=== PATIENT | female | born 1945 | race Caucasian/White ===

== ENCOUNTER 2024-02-07 07:46 | Inpatient (IN) | payer MEDICARE, BC, SELFPAY ==
[2024-02-04 19:56] VITALS: BP 126/84
[2024-02-04 21:17] VITALS: BP 147/56
[2024-02-04 21:21] VITALS: BMI 19.6
--- NOTE | 2024-02-04 21:25 | ED.GENMED ---
History of Present Illness
General
Chief Complaint: Abdominal Symptoms
Source: patient and family (Daughter)
Exam Limitations: none
Time Seen by Provider: 02/04/24 20:59
History of Present Illness
History of Present Illness:
78-year-old female noted to have a yellowing of her skin in the last 2 to 3 days. Also some fatigue and weakness. No significant abdominal pain. No nausea or vomiting. Some anorexia. No chest pain or shortness of breath. Does not use Tylenol.
No alcohol issues.
Past History
Past History
ED Past Medical History: GERD, HTN and Hypercholesterolemia
ED Past Surgical History:
Review of Systems
Review of Systems
All Other Systems: Not applicable
Constitutional: Reports fatigue; Denies fever, weight loss or chills
Respiratory: Reports no symptoms
Cardiac: Reports no symptoms
Phy Exam
Physical Exam
Physical Exam:
GENERAL: Alert and oriented in no apparent distress
EYE: Orbits normal. Scleral icterus
NECK: Supple, no significant adenopathy.
ENT: Pharynx without erythema
CARDIAC: Regular rate and rhythm without any obvious murmurs.
LUNGS: Clear breath sounds,normal
ABDOMEN: Soft, without focal tenderness or distention. Liver not palpable
NEUROLOGICAL: Alert and oriented , grossly non-focal
SKIN: Warm and dry, mildly jaundice. No petechia or purpura
MUSCULOSKELETAL: No edema,no deformity.Good color
PSYCH: Normal and appropriate interaction.
Course
Orders/Labs/Results
Orders:
Orders
02/04/24 21:09
IV Insert/Care/Rem.- Treatment PRN
US Abdomen Complete/Upper Urgent
Comment:
Reason For Exam: Elevated LFTs
02/04/24 21:30
Complete Blood Count/With Diff Urgent
Comprehensive Metabolic Panel Urgent
Lipase Urgent
02/04/24 21:31
PTT Urgent
Prothrombin Time Urgent
02/04/24 22:30
Urine Culture Reflexed from UA [Urinalysis Reflex To Culture] Urgent
Date Specimen was Collected: 02/04/24
Time Specimen was Collected: 22:28
Urine Microscopic Reflex Cult Urgent
Abnormal Lab Results
02/04/24 02/04/24
21:30 22:30
RBC 3.39 L 10^6/uL
(4.20-5.40)
Hgb 10.9 L g/dL
(12.0-16.0)
Hct 31.4 L %
(37.0-47.0)
MCH 32.2 H pg
(27.0-31.0)
MPV 11.6 H fL
(7.4-10.4)
Absolute Lymphs (auto) 0.9 L 10^3/uL
(1.2-3.4)
Lymphocytes % 17.9 L %
(20.5-51.1)
Monocytes % 10.9 H %
(1.7-9.3)
Glucose 138 H mg/dl
(70-99)
Total Bilirubin 11.2 H mg/dl
(0.2-1.3)
AST 407 H U/L
(14-36)
ALT 721 H* U/L
(0-35)
Alkaline Phosphatase 309 H U/L
(38-126)
Urine Bilirubin 3+ A
(Negative)
Urine Urobilinogen 2+ A
(Neg - 1+)
Leukocyte Esterase Rfl Trace A
(Negative)
02/04/24 21:30
02/04/24 21:30
Vital Signs
Initial and Last Documented VS:
Initial Vital Signs
Temp Pulse Resp BP Pulse Ox
97.8 F 83 20 126/84 100
02/04/24 19:56 02/04/24 19:56 02/04/24 19:56 02/04/24 19:56 02/04/24 19:56
Last Documented Vital Signs
Temp Pulse Resp BP Pulse Ox
98.5 F 71 20 140/51 96
02/04/24 21:17 02/04/24 22:26 02/04/24 22:26 02/04/24 22:26 02/04/24 22:26
MDM/Problems Addressed
Differential Diagnosis Includes:
Patient clinically nontoxic and in no distress. Painless jaundice. Workup in progress. Will contact GI for further approach
*Radiology
Radiology exam reviewed: radiology read reviewed (Dilated ducts with sludge)
*Pulse Oximetry
Patient hypoxic: no
*Critical Care Note
Total Time (30-74mins, 75-104mins- exclusive of procedures): Not Applicable
Update Note
Update Note:
Reviewed approach with GI. They recommend admission and more definitive workup. Needs MRCP.
ED Attending Note
-
Portions of this chart may have been created with voice recognition software.� Occasional wrong word or��sound alike� substitutions may have occurred due to the inherent limitations of voice recognition software.
Discharge Plan
Departure
Patient Disposition: Admit
Date of Disposition: 02/04/24
Time of Disposition: 22:43
Presentation/result/management discussed w/ accepting MD/DO: do
Discharge Problem:
Painless jaundice
Prescriptions:
No Action
simvastatin 20 mg Tablet
20 mg PO DAILY
fluticasone propionate
50 mcg inhalation DAILY PRN (Reason: congestion)
lisinopril
20 mg PO DAILY
omeprazole
20 mg PO DAILY
Referrals:
Kam Mercado DO [Family Provider] -
Interventions
Interventions:
*Risk Screen - Suicide Last Done: 02/04/24 19:56
*General Assessment Last Done: 02/04/24 19:56
*Neglect/Abuse Screening Last Done: 02/04/24 19:56
ED- Fall Risk Assessment Last Done: 02/04/24 21:19
*ED COVID-19 Vaccine History Last Done: 02/04/24 22:26
HA-Isavge-[facility] Assessment Last Done: 02/04/24 21:19
Discharge Date and Time
Print Language: OMANI
[2024-02-04 21:50] LABS: APTT 24.9 Sec (23.4-35.0); INR 1.14; PT 14.4 Sec (11.4-14.6)
[2024-02-04 21:50] LABS: % Basophils 0.6 % (0-2); % Immature Granulocytes 0.2 % (0-0.5); % Lymphocytes 17.9 % (20.5-51.1); % Monocytes 10.9 % (1.7-9.3); % Neutrophils 67.4 % (42.2-75.2); Absolute Eosinophils 0.2 10^3/uL (0-0.7); Absolute Lymphocytes 0.9 10^3/uL (1.2-3.4); Absolute Monocytes 0.6 10^3/uL (0.1-0.6); Absolute Neutrophils 3.5 10^3/uL (1.4-6.5); Hematocrit 31.4 % (37.0-47.0); Hemoglobin 10.9 g/dL (12.0-16.0); Mean Corp Hgb Conc. 34.7 g/dL (33.0-37.0); Mean Corpuscular Hgb 32.2 pg (27.0-31.0); Mean Corpuscular Volume 92.6 fL (81.0-99.0); Mean Platelet Volume 11.6 fL (7.4-10.4); Nucleated Red Blood Cells % 0 %; Platelet Count 190 10^3/uL (130-400); Red Blood Cell Count 3.39 10^6/uL (4.20-5.40); Red Cell Dist. Width 14.1 % (11.5-14.5); White Blood Cell Count 5.3 10^3/uL (4.8-10.8)
[2024-02-04 22:16] LABS: ALT (SGPT) 721 U/L (0-35); AST (SGOT) 407 U/L (14-36); Albumin 4.2 g/dl (3.5-5.0); Alkaline Phosphatase 309 U/L (38-126); Blood Urea Nitrogen 17 mg/dl (7-17); Calcium 9.9 mg/dl (8.4-10.2); Carbon Dioxide 22 mmol/L (22-30); Chloride 102 mmol/L (98-107); Estimated Creatinine Clearance 53 ml/min; Glucose 138 mg/dl (70-99); Sodium 138 mmol/L (135-145); Total Bilirubin 11.2 mg/dl (0.2-1.3); Total Protein 6.9 g/dl (6.3-8.2); eGFR > 60.00
[2024-02-04 22:26] VITALS: BP 140/51
[2024-02-04 22:36] LABS: Urine Albumin Trace (Neg - Trace); Urine Bilirubin 3+ (Negative); Urine Character Clear (Clear); Urine Color Yellow; Urine Glucose Negative (Negative); Urine Ketone Negative (Negative); Urine Leukocyte Trace (Negative); Urine Nitrite Negative (Negative); Urine Occult Blood Negative (Negative); Urine Urobilinogen 2+ (Neg - 1+)
[2024-02-04 22:50] LABS: Urine Bacteria Few (Negative); Urine Red Blood Cell 0-2 /HPF (0-2); Urine White Cell 0-2 /HPF (0-5)
--- NOTE | 2024-02-04 22:50 | HPS.HSE ---
Family Physician
-
Family Physician: Kam Mercado DO
Chief Complaint
-
Jaundiced
History of Present Illness
This is a 78-year-old female with past medical history of GERD, hyperlipidemia and hypertension who presents to the emergency department with development of bilious jaundice over the last 5 days.
Patient reported that 1 week ago she started noticing the discoloration of her urine becoming much more yellowish to brownish tinged and not clearing with drinking fluids. She denies any urinary symptom. She was seen by PMD who took a urine and
started on. Antibiotic. The urine test did not show that he did not have an infection. Ultimately she was sent to get a blood test which showed elevated bilirubin to 9 and then was sent to the ED for an ultrasound.
Patient herself reports her GERD symptoms but denies any other symptoms. She denies acetaminophen use. She denies history of alcohol use. She denies any other new medications. Patient reports that she has been itching for the last 3 days. No
prior history of malignancies.
Intermittent department the patient was afebrile hemodynamically stable and in no acute distress. CBC was unremarkable with a hemoglobin of 10.9. Chemistries with showing normal electrolytes normal BUN and creatinine with total bilirubin of 11.2,
elevated AST and ALT of 470 respectively. Lipase pending. UA shows bilirubin but is otherwise unremarkable. Abdominal ultrasound shows distended gallbladder with gallbladder sludge but no Gunn sign. There is ductal dilatation but no stones.
Associated pancreatic duct dilatation as well. No masses noted.
Medical History
Past Medical History
Past Medical History: Reports GERD, HTN and Hypercholesterolemia
Past Surgical History: Reports None
Social History
Unable to obtain full social history at this time due to: Dementia
Tobacco: Non-smoker
Alcohol: Occasional
Drug: None
Personal: Single
Living: With Family
Employment: Not Employed
Family History
Family History: Not pertinent
Allergies / Home Medications
Allergies reflects when Allergies were last updated in [employer].
Home Medications with original date entered in [employer]
Allergy/Medication List:
Allergies
Allergy/AdvReac Type Severity Reaction Status Date / Time
No Known Allergies Allergy Verified 02/04/24 20:00
Home Medications
fluticasone propionate 50 mcg inhalation DAILY PRN congestion 02/04/24
lisinopril 20 mg PO DAILY 02/04/24
omeprazole 20 mg PO DAILY 02/04/24
simvastatin 20 mg tablet 20 mg PO DAILY 02/04/24
Review of Systems
-
History Source: Patient
Constitutional: Reports No Symptoms
EENT: Reports No Symptoms
Respiratory: Reports No Symptoms
Cardiac: Reports No Symptoms
Abdomen/GI: Reports No Symptoms
: Reports Dark Urine
Musculoskeletal: Reports No Symptoms
Skin: Reports Itching and Other (Jaundiced)
Neurological: Reports No Symptoms
Endocrine: Reports No Symptoms
Hematologic/Lymphatic: Reports No Symptoms
Psych: Reports No Symptoms
Physical Exam
Vital Signs
Vital Signs
Temp Pulse Resp BP Pulse Ox
98.5 F 71 20 140/51 96
02/04/24 21:17 02/04/24 22:26 02/04/24 22:26 02/04/24 22:26 02/04/24 22:26
Physical Exam
General: Well Developed, Well Nourished, No Apparent Distress and Comfortable
HEENT: NormoCephalic, Moist mucous membranes, Atraumatic, PERRLA and Other (Scleral icterus)
Respiratory: Clear
Cardiac: S1/S2 and Regular Rhythm
Breast: Deferred by me
GI: Soft, Non Tender, Non Distended and Normal Bowel Sounds
Rectal: Deferred by Provider
Genito-urinary: Deferred by me
Musculoskeletal: No Clubbing, No Cyanosis and No Edema
Skin: Warm
Neuro: AO x 3
Hematologic/Lymphatic: No Lymphadenopathy
Psych: Calm
Laboratory Results
-
02/04/24 21:30
02/04/24 21:30
Laboratory Results
PT 14.4 Sec (11.4-14.6) 02/04/24:31
INR 1.14 02/04/24:
APTT 24.9 Sec (23.4-35.0) 02/04/24:
Total Bilirubin 11.2 mg/dl (0.2-1.3) H 02/04/24 21:30
AST 407 U/L (14-36) H 02/04/24 21:30
ALT 721 U/L (0-35) H* 02/04/24:30
Alkaline Phosphatase 309 U/L (38-126) H 02/04/24 21:30
Data Reviewed
-
Ultrasound: Report Reviewed by me
Lab Data: Labs Reviewed by me
Old Records: Reviewed
Impression/Plan
-
IMPRESSION:
This 78-year-old with no significant medical history except for GERD and hypertension presents with painless jaundice over the last few days without any acute abdominal symptoms including abdominal pain nausea or vomiting. Ultrasound shows biliary
ductal dilatation including pancreatic duct dilation. LFTs shows total bilirubin of 11.2 moderately elevated AST and ALT. She has a normal hemoglobin.
PLAN:
1. Jaundice -painless jaundice without hepatic dysfunction INR is within normal limits. Likely secondary to obstruction with the etiology of the obstruction is not clear at this time. Admitted to us to expedite further investigation.
- admit to med/surg obs
- mrcp recommended and ordered
- obtain gtp, direct bilirubin
- topical prn itch
- gi consult
2. HTN
- continue lisinopril
3. GERD
- continue ppi
DVT PPX - lovenox sq
Code Status - Full Code
[2024-02-04 23:03] LABS: Lipase > 4000 U/L (23-300)
[2024-02-05 00:21] VITALS: BP 137/68; BMI 19.3
--- NOTE | 2024-02-05 00:49 | TRANSFER ---
Pt admitted to unit from ED. Pt ambulated self to bed. Pt denies pain at this time. Pt reports when pt had pain it was on the RUQ 'under my bra strap and it felt like someone pressing on my ribs.' [id number]. Pt oriented to room with call avelar in reach.
Plan of care ongoing.
--- NOTE | 2024-02-05 03:58 | DOWNTIME ---
There was a [employer] Downtime on 02/05/2024 from 0100 to 02/05/2024 at 0355. Downtime documentation of patient's care, including medication administrations, has been reconciled in the electronic record per guidelines. Refer to the
patient's paper chart under the miscellaneous tab to see printed paper medication records and downtime forms.
--- NOTE | 2024-02-05 06:43 | CON.GI ---
Addendum entered and electronically signed by Peyton Sotelo Do, MD 02/05/24 12:53:
I saw and examined the patient.
The CONTACT CENTER ASSOCIATE's note was reviewed and I agree with the note.
Comment: Stephanie is a 78yo W with h/o HL and GERD who was told to come to ER by PCP for elevated LFTs. She was seen for discolored urine and treated with abx for UTI. Labs showed elevated LFTs and she was advised to go to ER for expediated
workup. She does report abd bloating discomfort but not pain and early satiety. 5lb wt loss. She denies constipation. Vitals stable exam icteric NTTP, NABS. Labs reviewed notable for very high LFTs and pancreatic enzyme
Impression
- Painless jaundice
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
- Elevated LFTs and lipase
- Wt loss
- Hyperlipidemia
- GERD
- HTN
Recommendations
- Await MRI MRCP
- Pending above may need ERCP for biliary stent and EUS for FNA
- NPO at [facility]
- C/w PPI
- Trend LFTs add INR
Will follow with you
Original Note:
Consultation
-
Date/Time Consultation Requested: 02/05/24 0015
Date/Time Consultation Performed: 02/05/24 1034
Requesting Provider: jared Altamirano MD
Performing Provider: LIGIA Acosta, Peyton uV MD
Reason for Consultation: painless Jaundice
Medical History
Chief Complaint / HPI
Chief Complaint: jaundice
History of Present Illness:
Pt is a 78yo with hx GERD, HTN, hypercholesterolemia with onset of fatigue, weakness and new painless jaundice. On admission US noted with distended GB with mild GB sludge with intra and extra hepatic biliary dilatation with associated pancreatic
ductal dilatation as well. No mass or stone noted. Labs notable for hbg 10.9 with bili 11.2, AST 407, ALT 731, and alk phos 309 with lipase >4000. In review with patient noted with onset of dark urine. She as initially treated for UTI with
Bactrim with some abdominal discomfort then Macrobid. She also noted decreased appetite with 4-5 lbs wt loss and morrissey looser stools.
She admits to chronic GERD with PRN Omeprazole but otherwise denies dysphagia, vomiting, constipation or rectal bleeding. No hx EGD or colonoscopy in past.
Past Medical History
Past Medical History: GERD, HTN and Hypercholesterolemia
Past Surgical History:
Social History
Tobacco: Non-Smoker
Alcohol: None
Drug: None
Living: Alone
Employment: Retired
Family History
Family History: Other (father with hx chay, no family hx colon Ca or pancreatic issues )
Allergies / Home Medications
Allergy/AdvReac Type Severity Reaction Status Date / Time
No Known Allergies Allergy Verified 02/04/24 20:00
�Medication �Instructions �Recorded
fluticasone propionate 50 mcg inhalation DAILY PRN 02/04/24
congestion
lisinopril 20 mg PO DAILY 02/04/24
omeprazole 20 mg PO PRN acid reflux 02/04/24
simvastatin 20 mg tablet 20 mg PO HS 02/04/24
Daily Multivitamin 02/05/24
Review of Systems
-
History Source: Patient
Constitutional: Reports Weight Loss and Fatigue
EENT: Reports No Symptoms
Respiratory: Reports No Symptoms
Cardiac: Reports No Symptoms
Abdomen/GI: Reports Abdominal Pain (mild after abx use) and Other (morrissey loose stools )
: Reports Dark Urine
Skin: Reports Other (jaundice )
Neurological: Reports No Symptoms
Endocrine: Reports No Symptoms
Hematologic/Lymphatic: Reports No Symptoms
Vital Signs
Temp Pulse Resp BP Pulse Ox
98.0 F 82 18 137/68 100
02/05/24 00:21 02/05/24 00:21 02/05/24 00:21 02/05/24 00:21 02/05/24 00:46
Physical Exam
Exam
General: Well Developed, Well Nourished and No Apparent Distress
HEENT: Normocephalic and Other (sclera icteric with jaundiced skin)
Respiratory: Clear
Cardiac: Regular Rhythm
GI: Soft, Non Tender and Non Distended
Musculoskeletal: No Clubbing and No Cyanosis
Skin: Warm and Dry
Neuro: Awake, Alert and AO x 3
Psych: Calm
Results
WBC 5.3 10^3/uL (4.8-10.8) 02/04/24 21:30
Hgb 10.9 g/dL (12.0-16.0) L 02/04/24 21:30
Hct 31.4 % (37.0-47.0) L 02/04/24 21:30
MCV 92.6 fL (81.0-99.0) 02/04/24 21:30
Plt Count 190 10^3/uL (130-400) 02/04/24 21:30
Absolute Neuts (auto) 3.5 10^3/uL (1.4-6.5) 02/04/24 21:30
PT 14.4 Sec (11.4-14.6) 02/04/24 21:31
INR 1.14 02/04/24 21:31
APTT 24.9 Sec (23.4-35.0) 02/04/24 21:31
Sodium 138 mmol/L (135-145) 02/04/24 21:30
Potassium 4.0 mmol/L (3.5-5.1) 02/04/24 21:30
Chloride 102 mmol/L (98-107) 02/04/24 21:30
Carbon Dioxide 22 mmol/L (22-30) 02/04/24 21:30
BUN 17 mg/dl (7-17) 02/04/24 21:30
Creatinine 0.7 mg/dL (0.6-1.0) 02/04/24 21:30
Calcium 9.9 mg/dl (8.4-10.2) 02/04/24 21:30
Total Bilirubin 11.2 mg/dl (0.2-1.3) H 02/04/24 21:30
AST 407 U/L (14-36) H 02/04/24 21:30
ALT 721 U/L (0-35) H* 02/04/24 21:30
Alkaline Phosphatase 309 U/L (38-126) H 02/04/24 21:30
Lipase > 4000 U/L (23-300) H* 02/04/24 21:30
Diagnostic Image Results:
02/04/24 US Abdomen Complete/Upper
IMPRESSION: Distended gallbladder with mild gallbladder sludge and intra and extra hepatic biliary dilatation. Associated pancreatic duct dilatation as well. No obstructing mass or stone noted. MRCP examination recommended.
Nonvisualization of the proximal IVC and abdominal aorta.
Prior GI Procedures:
EGD: none
Colonoscopy: none
Assessment / Plan
-
Pt is a 78yo with hx GERD, HTN, hypercholesterolemia with onset of fatigue, weakness and new painless jaundice. On admission US noted with distended GB with mild GB sludge with intra and extra hepatic biliary dilatation with associated pancreatic
ductal dilatation as well. No mass or stone noted. Labs notable for hbg 10.9 with bili 11.2, AST 407, ALT 731, and alk phos 309 with lipase >4000. In review with patient noted with onset of dark urine. She as initially treated for UTI with
Bactrim with some abdominal discomfort then Macrobid. She also noted decreased appetite with 4-5 lbs wt loss and morrissey looser stools.
-onset of jaundice with dark urine and pale stools
-recent rx with Bactrim then Macrobid for possible UTI with change in urine
-decreased appetite with 4-5 lb wt loss
-elevated LFT's and lipase
-US with intra/extrahepatic and pancreatic duct dilation
other med problems:
-HTN
-hypercholesterolemia
-GERD
PLAN:
Etiology of elevated LFT's and lipase with jaundice with concern for biliary obstructive process (stone, mass) vs other
will change MRCP to with and without contrast with MRCP
pending results may need EUS/ERCP
ok for diet then NPO in AM
trend labs
hold Lovenox and add compression stocking
updated family and nursing staff
-
-
Thank you for consultation and allowing me to participate in the patient's care. Please call the impregnation operator GI physician during the after hours with any questions or concerns.
[2024-02-05 07:00] VITALS: BP 130/64
[2024-02-05] MEDS: ZESTRIL 20 MG PO (09:13)
[2024-02-05] MEDS: PROTONIX 40 MG PO (09:13)
[2024-02-05 10:31] LABS: ALT (SGPT) 688 U/L (0-35); AST (SGOT) 407 U/L (14-36); Albumin 4.1 g/dl (3.5-5.0); Alkaline Phosphatase 306 U/L (38-126); Blood Urea Nitrogen 14 mg/dl (7-17); Calcium 9.9 mg/dl (8.4-10.2); Carbon Dioxide 23 mmol/L (22-30); Chloride 104 mmol/L (98-107); Direct Bilirubin 10.2 mg/dl (0.0-0.4); Estimated Creatinine Clearance 61 ml/min; GGTP 742 U/L (12-43); Glucose 122 mg/dl (70-99); Potassium 4.5 mmol/L (3.5-5.1); Sodium 140 mmol/L (135-145); Total Bilirubin 12.1 mg/dl (0.2-1.3); Total Protein 6.8 g/dl (6.3-8.2); eGFR > 60.00
--- NOTE | 2024-02-05 11:26 | W.PN.HOSP.TC ---
Today's Communication/Plan
-
Follow-up MRCP/MRI
Consideration for ERCP/EUS
Trend LFTs and avoid hepatotoxins
Assessment / Plan
Assessment / Plan
#Presumed obstructive jaundice
#Elevated lipase
-Differential diagnosis include pancreatic mass versus other cancer versus choledocholithiasis
-Patient presented with jaundice first noted a few days prior to admission; ultrasound here with signs of duct dilation
-Had outpatient labs with bilirubin >9; labs here with T. bili 12.1, direct bili 10.2 consistent with obstructive jaundice
-Also has elevations to ALP, AST, ALT, GGT consistent with obstructive etiology; lipase >4000
-Patient states she is lost roughly 5 pounds in the last week or so
-GI following, planning for MRCP/MRI today
Plan
-Follow-up MRCP/MRI
-Consider ERCP/EUS pending MR results
-Continue to trend LFTs daily
-Avoid hepatotoxins, holding statin
#GERD
-No known history of erosive disease or Stringer's esophagus
-Home medications include omeprazole to 40 mg as needed
#Hypertension
-Home medications include lisinopril 20 mg
-No known history of hypertensive systemic disease
#Dyslipidemia
-No known ASCVD history, home medications include simvastatin
-Holding statin now due to transaminitis as above
DVT prophylaxis: Lovenox
Diet: Regular, NPO @ [facility] for possible ERCP tomorrow
CODE STATUS: Full code
Anticipated Discharge: > 48 hours
Subjective/Interval History
-
Date of Service: February 05, 2024
Seen and examined at the bedside. No acute events reported overnight. AFVSS this morning.
Patient states she first was told she looked yellow roughly 5 days ago, did not notice any discoloration before. She states she is lost close to 5 pounds as well over the last week or 2 as her appetite has been poor. Denies weight loss preceding
that. Denies known family history of significant malignancies.
Denies chest pain, dyspnea, fevers or chills, urinary issues, nausea or vomiting, bleeding or bruising, paresthesias or weakness
Objective Data
-
Labs:
Laboratory Results
02/05/24
08:33
Sodium 140
Potassium 4.5
Chloride 104
Carbon Dioxide 23
BUN 14
Creatinine 0.6
Glucose 122 H
Calcium 9.9
Total Bilirubin 12.1 H
AST 407 H
ALT 688 H*
Alkaline Phosphatase 306 H
Vital Signs:
Vital Signs
Temp Pulse Resp BP Pulse Ox
97.8 F 81 18 130/64 99
02/05/24 07:00 02/05/24 09:13 02/05/24 07:00 02/05/24 09:13 02/05/24 07:00
I&O
02/04/24 02/05/24 02/06/24
06:59 06:59 06:59
Intake Total 60 / 60
Balance 60 / 60
Review of Systems
-
History Source: Patient
All other systems: Reviewed and negative
Physical Exam
-
General: No Apparent Distress and Comfortable
HEENT: Normocephalic, Atraumatic, Moist Mucous Membranes and Other (Scleral icterus present)
Respiratory: Clear to Auscultation and Non Labored Respirations; Negative Wheezes, Rales or Rhonchi
Cardiac: Regular Rhythm and S1/S2; Negative Murmur, Rub or Gallop
GI: Soft, Nondistended, Normal Bowel Sounds, Tender (Very mild RUQ tenderness, no peritoneal signs) and Organomegaly (Palpable liver below costal edge )
Musculoskeletal: No Clubbing, No Cyanosis and No Edema
Skin: Warm, Dry and Jaundice; Negative Rash
Neuro: AO x 3, Nonfocal/Grossly Intact and Central Nerve's Intact; Negative Tremors
Hematologic / Lymphatic: No Lymphadenopathy (No supraclavicular or cervical adenopathy)
Psych: Calm
[2024-02-05 14:50] VITALS: BP 144/60
--- NOTE | 2024-02-05 16:30 | CM ---
configuration manager reviewed patient's chart and met with patient and patient was admitted under OBS, ENRIQUEZ letter provided to patient, signed and placed on chart. Patient lives alone in a town home, patient is independent with adl's and ambulation, no
dme, patient drives.
PCP: Dr. Kam Mercado
Pharmacy: [facility] in [place].
Plan; Home when stable no needs.
[2024-02-05 23:10] VITALS: BP 120/61
[2024-02-06] VITALS (8 sets, daily range): BP systolic 115–157; BP diastolic 42–97; BMI 19.3
[2024-02-06 06:02] LABS: Hematocrit 29.3 % (37.0-47.0); Hemoglobin 10.5 g/dL (12.0-16.0); Mean Corp Hgb Conc. 35.8 g/dL (33.0-37.0); Mean Corpuscular Hgb 32.4 pg (27.0-31.0); Mean Corpuscular Volume 90.4 fL (81.0-99.0); Mean Platelet Volume 11.2 fL (7.4-10.4); Platelet Count 190 10^3/uL (130-400); Red Blood Cell Count 3.24 10^6/uL (4.20-5.40); Red Cell Dist. Width 14.3 % (11.5-14.5); White Blood Cell Count 4.6 10^3/uL (4.8-10.8)
[2024-02-06 06:29] LABS: ALT (SGPT) 629 U/L (0-35); AST (SGOT) 361 U/L (14-36); Albumin 3.8 g/dl (3.5-5.0); Alkaline Phosphatase 281 U/L (38-126); Blood Urea Nitrogen 14 mg/dl (7-17); Calcium 9.6 mg/dl (8.4-10.2); Carbon Dioxide 23 mmol/L (22-30); Chloride 105 mmol/L (98-107); Direct Bilirubin 8.5 mg/dl (0.0-0.4); Estimated Creatinine Clearance 53 ml/min; Glucose 115 mg/dl (70-99); Potassium 4.2 mmol/L (3.5-5.1); Sodium 140 mmol/L (135-145); Total Bilirubin 10.3 mg/dl (0.2-1.3); Total Protein 6.3 g/dl (6.3-8.2); eGFR > 60.00
[2024-02-06] MEDS: ZESTRIL 20 MG PO (08:00)
[2024-02-06] MEDS: PROTONIX 40 MG PO (08:00)
--- NOTE | 2024-02-06 10:24 | W.PN.HOSP.TC ---
Today's Communication/Plan
-
ERCP/EUS this afternoon
N.p.o. pending procedure
Trend LFTs
Assessment / Plan
Assessment / Plan
#Presumed obstructive jaundice
#Elevated lipase
-Suspicion is very high for pancreatic head malignancy, likely adenocarcinoma
-Patient presented with jaundice first noted a few days prior to admission; ultrasound here with signs of duct dilation
-Had outpatient labs with bilirubin >9; labs here with T. bili 12.1, direct bili 10.2 consistent with obstructive jaundice
-Also has elevations to ALP, AST, ALT, GGT consistent with obstructive etiology; lipase >4000
-Patient states she is lost roughly 5 pounds in the last week or so; LFTs have been stable here
-GI following, MRCP/MRI without signs of mass but findings suspicious for pancreatic head lesion
Plan
-ERCP/EUS this afternoon, follow-up results +/- pathology
-Continue to trend LFTs daily
-Avoid hepatotoxins, holding statin
#GERD
-No known history of erosive disease or Stringer's esophagus
-Home medications include omeprazole to 40 mg as needed
#Hypertension
-Home medications include lisinopril 20 mg
-No known history of hypertensive systemic disease
#Dyslipidemia
-No known ASCVD history, home medications include simvastatin
-Holding statin now due to transaminitis as above
DVT prophylaxis: Lovenox
Diet: Regular, NPO for ERCP
CODE STATUS: Full code
Anticipated Discharge: > 48 hours
Subjective/Interval History
-
Date of Service: February 06, 2024
Seen and examined at the bedside. No acute events overnight. AFVSS this morning.
Plan for ERCP/EUS, likely early this afternoon
She denies any acute complaints including chest pain, dyspnea, fevers or chills, nausea/vomiting/diarrhea, urinary issues, bleeding or bruising, paresthesias or weakness. Abdomen pain is minimal
Objective Data
-
Labs:
Laboratory Results
02/06/24
05:47
WBC 4.6 L
Hgb 10.5 L
Hct 29.3 L
Plt Count 190
Sodium 140
Potassium 4.2
Chloride 105
Carbon Dioxide 23
BUN 14
Creatinine 0.7
Glucose 115 H
Calcium 9.6
Total Bilirubin 10.3 H
AST 361 H
ALT 629 H*
Alkaline Phosphatase 281 H
Vital Signs:
Vital Signs
Temp Pulse Resp BP Pulse Ox
98.2 F 85 16 128/63 96
02/06/24 07:25 02/06/24 07:25 02/06/24 07:25 02/06/24 07:25 02/06/24 07:25
I&O
02/05/24 02/06/24 02/07/24
06:59 06:59 06:59
Intake Total 60 / 60 240 / 240 480 / 480
Balance 60 / 60 240 / 240 480 / 480
Review of Systems
-
History Source: Patient
All other systems: Reviewed and negative
Physical Exam
-
General: No Apparent Distress, Comfortable and Other (Frail, thin female)
HEENT: Normocephalic, Atraumatic, Moist Mucous Membranes and Other (Scleral icterus present)
Respiratory: Clear to Auscultation and Non Labored Respirations; Negative Wheezes, Rales or Rhonchi
Cardiac: Regular Rhythm and S1/S2; Negative Murmur, Rub or Gallop
GI: Soft, Nondistended, Normal Bowel Sounds, Tender (Mild RUQ, no peritoneal signs) and Organomegaly (Liver edge palpable below right costal angle)
Musculoskeletal: No Clubbing, No Cyanosis and No Edema
Skin: Warm, Dry and Jaundice; Negative Rash
Neuro: AO x 3, Nonfocal/Grossly Intact and Central Nerve's Intact
Psych: Calm
Data Reviewed
-
MRI: Report Reviewed by me and Discussed with Patient
Labs: Labs Reviewed by me and Discussed with Patient
--- NOTE | 2024-02-06 16:07 | CM ---
Home no needs when stable.
Plan; Home no needs.
--- NOTE | 2024-02-06 18:57 | PTCARENOTE ---
patient was received from gi lab on a stretcher with two recovery nurses. patient was alert, oriented x 4 and verbally responsive. patient had some irritation to her throat but otherwise did not have any behavioral/verbal indicators of discomfort or
pain. patient was able to stand and ambulate to her bed from the stretcher. patient was able to tolerate her clear liquid diet. family currently at bedside
[2024-02-06] MEDS: MORPHINE SULFATE 2 MG IV (20:59)
--- NOTE | 2024-02-06 21:04 | PTCARENOTE ---
Patient reports discomfort in her right upper abdomen unable to be rated from 1-10 on a pain scale. Johan Berg notified, order placed for IV Morphine 2mg q4h and provided to pt.
[2024-02-07 00:43] LABS: Hepatitis C Antibody Negative (Negative)
[2024-02-07] MEDS: ZESTRIL 20 MG PO (07:58)
[2024-02-07] MEDS: PROTONIX 40 MG PO (07:58)
[2024-02-07 08:00] VITALS: BP 112/65
[2024-02-07 08:07] LABS: % Basophils 0.1 % (0-2); % Immature Granulocytes 0.4 % (0-0.5); % Lymphocytes 11.8 % (20.5-51.1); % Monocytes 10.2 % (1.7-9.3); % Neutrophils 77.5 % (42.2-75.2); Absolute Lymphocytes 0.9 10^3/uL (1.2-3.4); Absolute Monocytes 0.7 10^3/uL (0.1-0.6); Absolute Neutrophils 5.6 10^3/uL (1.4-6.5); Hematocrit 30.4 % (37.0-47.0); Hemoglobin 10.9 g/dL (12.0-16.0); Mean Corp Hgb Conc. 35.9 g/dL (33.0-37.0); Mean Corpuscular Hgb 32.2 pg (27.0-31.0); Mean Corpuscular Volume 89.9 fL (81.0-99.0); Mean Platelet Volume 11.2 fL (7.4-10.4); Nucleated Red Blood Cells % 0 %; Platelet Count 200 10^3/uL (130-400); Red Blood Cell Count 3.38 10^6/uL (4.20-5.40); Red Cell Dist. Width 14.5 % (11.5-14.5); White Blood Cell Count 7.3 10^3/uL (4.8-10.8)
[2024-02-07 08:53] LABS: ALT (SGPT) 587 U/L (0-35); AST (SGOT) 352 U/L (14-36); Albumin 3.7 g/dl (3.5-5.0); Alkaline Phosphatase 281 U/L (38-126); Blood Urea Nitrogen 18 mg/dl (7-17); Calcium 9.4 mg/dl (8.4-10.2); Carbon Dioxide 21 mmol/L (22-30); Chloride 103 mmol/L (98-107); Direct Bilirubin 5.7 mg/dl (0.0-0.4); Estimated Creatinine Clearance 53 ml/min; Glucose 118 mg/dl (70-99); Potassium 4.4 mmol/L (3.5-5.1); Sodium 140 mmol/L (135-145); Total Bilirubin 7.3 mg/dl (0.2-1.3); Total Protein 6.4 g/dl (6.3-8.2); eGFR > 60.00
--- NOTE | 2024-02-07 10:29 | W.PN.HOSP.TC ---
Today's Communication/Plan
-
Order IgG4 levels, CA 19-9, CEA
Discharge with outpatient GI and oncology follow-up
Assessment / Plan
Assessment / Plan
#Biliary stricture
#Obstructive jaundice
-Suspicion is very high for pancreatic head malignancy, likely adenocarcinoma
-Patient presented with jaundice first noted a few days prior to admission; ultrasound here with signs of duct dilation
-Had outpatient labs with bilirubin >9; labs here with T. bili 12.1, direct bili 10.2 consistent with obstructive jaundice
-Also has elevations to ALP, AST, ALT, GGT consistent with obstructive etiology; lipase >4000
-Patient states she is lost roughly 5 pounds in the last week or so; LFTs have been stable here
-ERCP yesterday with malignant appearing biliary stricture, s/p stent placement
Plan
-Follow-up stricture pathology from ERCP
-Order anti-IgG4, CEA, CA 19-9 levels
-Continue to trend LFTs daily
-Avoid hepatotoxins, holding statin
-Will prepare for GI and oncology follow-up at [place]
#GERD
-No known history of erosive disease or Stringer's esophagus
-Home medications include omeprazole to 40 mg as needed
#Hypertension
-Home medications include lisinopril 20 mg
-No known history of hypertensive systemic disease
#Dyslipidemia
-No known ASCVD history, home medications include simvastatin
-Holding statin now due to transaminitis as above
DVT prophylaxis: Lovenox
Diet: Regular, NPO for ERCP
CODE STATUS: Full code
Anticipated Discharge: Today
Subjective/Interval History
-
Date of Service: February 07, 2024
Seen and examined at the bedside. No acute events reported overnight. AFVSS this morning.
Status post stent placement with ERCP yesterday for malignant appearing biliary stricture. LFTs now downtrending, patient states she feels well. Would like to go home today.
She denies acute complaints including chest pain, dyspnea, fevers or chills, abdomen pain, nausea or vomiting, bleeding or bruising, paresthesias or weakness, urinary issues.
Objective Data
-
Labs:
Laboratory Results
02/07/24
07:40
WBC 7.3
Hgb 10.9 L
Hct 30.4 L
Plt Count 200
Sodium 140
Potassium 4.4
Chloride 103
Carbon Dioxide 21 L
BUN 18 H
Creatinine 0.7
Glucose 118 H
Calcium 9.4
Total Bilirubin 7.3 H
AST 352 H
ALT 587 H*
Alkaline Phosphatase 281 H
Vital Signs:
Vital Signs
Temp Pulse Resp BP Pulse Ox
98.3 F 83 16 112/65 100
02/07/24 08:00 02/07/24 08:00 02/07/24 08:00 02/07/24 08:00 02/07/24 08:00
I&O
02/06/24 02/07/24 02/08/24
06:59 06:59 06:59
Intake Total 240 / 240 1060 / 1060
Balance 240 / 240 1060 / 1060
Review of Systems
-
History Source: Patient
All other systems: Reviewed and negative
Physical Exam
-
General: No Apparent Distress, Comfortable and Other (Thin female)
HEENT: Normocephalic, Atraumatic, Moist Mucous Membranes and Other (Bilateral scleral icterus)
Respiratory: Clear to Auscultation and Non Labored Respirations
Cardiac: Regular Rhythm and S1/S2; Negative Murmur, Rub or Gallop
GI: Soft, Nontender, Nondistended, Normal Bowel Sounds and Organomegaly
Musculoskeletal: No Clubbing, No Cyanosis and No Edema
Skin: Warm, Dry and Jaundice; Negative Rash
Neuro: AO x 3, Nonfocal/Grossly Intact and Central Nerve's Intact; Negative Tremors
Hematologic / Lymphatic: No Lymphadenopathy
Psych: Calm
Data Reviewed
-
Labs: Labs Reviewed by me, Discussed with Physician and Discussed with Patient
--- NOTE | 2024-02-07 11:35 | CM ---
Chart reviewed and patient is for discharge to home today. No needs.
Plan; Home today no needs.
[2024-02-07 11:40] LABS: CEA 0.75 ng/ml
--- NOTE | 2024-02-07 12:01 | W.PN.GI.CBS2 ---
Today's Communication / Plan
-
s/p MRI then EUS/ERCP with concern for pancreatic mass with malignant appearing biliary stricture
feeling well post procedure with improved LFT's
advance to low fat diet
for discharge later today
I sent message to office for 3 month follow up and pt to call next week for biopsy results-- she is aware dr. Romero away next 2 weeks
all questions answered
Assessment / Plan
-
Pt is a 78yo with hx GERD, HTN, hypercholesterolemia with onset of fatigue, weakness and new painless jaundice. On admission US noted with distended GB with mild GB sludge with intra and extra hepatic biliary dilatation with associated pancreatic
ductal dilatation as well. No mass or stone noted. Labs notable for hbg 10.9 with bili 11.2, AST 407, ALT 731, and alk phos 309 with lipase >4000. In review with patient noted with onset of dark urine. She as initially treated for UTI with
Bactrim with some abdominal discomfort then Macrobid. She also noted decreased appetite with 4-5 lbs wt loss and morrissey looser stools.
02/05/24 MRI abdomen
Severe intrahepatic and extrahepatic bile duct dilatation. No MRCP evidence for choledocholithiasis. Dilatation of the main pancreatic duct. An occult pancreatic head malignancy or ampullary neoplasm would be considerations given the degree of
biliary and pancreatic duct dilatation (double duct sign). Consider a follow-up ERCP or endoscopic ultrasound with soft tissue sampling for further evaluation
02/05 EUS - A mass was identified in the pancreatic head. This
was staged T2 Nx Mx by endosonographic criteria if
cytology confirms malignancy. Fine needle aspiration
performed.
- There was dilation in the common bile duct which
measured up to 18 mm.
- One enlarged lymph node was visualized in the oren
hepatis region.
- There was no sign of significant pathology in the
ampulla.
- There was no evidence of significant pathology in
the left lobe of the liver.
02/05 ERCP - A single severe biliary stricture was found in the
distal common bile duct near ampulla. The stricture
was malignant appearing.
- The common bile duct was severely dilated.
- A biliary sphincterotomy was performed.
- One plastic stent was placed into the right hepatic
duct.
Laboratory Tests
02/06/24 02/07/24
05:47 07:40
Direct Bilirubin 8.5 H 5.7 H
AST 361 H 352 H
ALT 629 H* 587 H*
Alkaline Phosphatase 281 H 281 H
-onset of jaundice with dark urine and pale stools s/p EUS/ERCP
-recent rx with Bactrim then Macrobid for possible UTI with change in urine
-decreased appetite with 4-5 lb wt loss
-elevated LFT's and lipase
-US with intra/extrahepatic and pancreatic duct dilation
other med problems:
-HTN
-hypercholesterolemia
-GERD
PLAN:
s/p MRI then EUS/ERCP with concern for pancreatic mass with malignant appearing biliary stricture
feeling well post procedure with improved LFT's
advance to low fat diet
for discharge later today
I sent message to office for 3 month follow up and pt to call next week for biopsy results-- she is aware dr. Romero away next 2 weeks
all questions answered
Subjective
Subjective
Date of Service: February 07, 2024
feeling well post procedure, tolerating clear diet
Objective
Data Reviewed
Laboratory Data:
Laboratory Results
02/07/24 07:40
02/07/24 07:40
Laboratory Results
PT 14.4 Sec (11.4-14.6) 02/04/24 21:31
INR 1.14 02/04/24 21:31
APTT 24.9 Sec (23.4-35.0) 02/04/24 21:31
Total Bilirubin 7.3 mg/dl (0.2-1.3) H 02/07/24 07:40
AST 352 U/L (14-36) H 02/07/24 07:40
ALT 587 U/L (0-35) H* 02/07/24 07:40
Alkaline Phosphatase 281 U/L (38-126) H 02/07/24 07:40
Lipase > 4000 U/L (23-300) H* 02/04/24 21:30
Vital Signs and I&O:
Vital Signs
Temp Pulse Resp BP Pulse Ox
98.3 F 83 16 112/65 100
02/07/24 08:00 02/07/24 08:00 02/07/24 08:00 02/07/24 08:00 02/07/24 08:00
I&O
02/06/24 02/07/24 02/08/24
06:59 06:59 06:59
Intake Total 240 / 240 1060 / 1060
Balance 240 / 240 1060 / 1060
Physical Exam
Physical Exam
HEENT: Other (jaundice )
Cardiology: Normal Sinus Rhythm
Pulmonary: Clear
GI: Soft, Non Distended and Non Tender
Extremities: No Edema
Neuro: Non Focal
--- NOTE | 2024-02-07 14:16 | W.DCSUMMARY ---
Discharge Summary
Discharge Data
Date of Admission: 02/07/24
Date of Discharge: 02/07/24
-
Pending Results: Yes
Additional Pending Results:
Anti-IgG4 levels
CA 19-9 levels
CEA levels
Pathology report of pancreatic head mass/biliary stricture
Hospital Course
78-year-old female with GERD, hyperlipidemia, hypertension that presented to the hospital with yellow skin that was noted by her daughter. On arrival had significant elevation into her LFTs with total bilirubin >10. No evidence of hemolysis on
fractionated bilirubin. Abdominal ultrasound did not show any cholelithiasis nor signs of cholecystitis, did show evidence of bile duct dilation. MRCP was performed that did not show any signs of choledocholithiasis but did show evidence of likely
pancreatic head mass. ERCP/EUS was performed the next day which showed stage T2 NX MX pancreatic head mass as well as in the malignant appearing biliary stricture. Biliary stent placed at that time, LFTs down trended subsequently. Labs sent for
anti-IgG4 levels, CA 19-9, CEA on day of discharge, will need to follow-up as outpatient for results. Will also need to follow-up for pathology findings. She was given referrals for oncology and gastroenterology prior to discharge. To be seen by
oncology office week after discharge from hospital
Discharge Plan
-
Patient Disposition: Home (Routine Discharge)
Discharge Diagnosis/Procedures: Biliary stricture
Obstructive jaundice
Condition: Good
Diet: No restrictions
Activity: As tolerated
Driving Restrictions: No driving for 24 hours
Bathing Restrictions: None
Blood Work: LFTs in 1 week
Activity Restrictions/Additional Instructions:
You should follow-up with your family doctor within a week of discharge.
Referrals have been provided for gastroenterology and oncology. Call offices to schedule follow-up appointments, oncology states they can see you next week. He will follow-up on IgG4 levels, CEA levels, CA 19-9 levels (labs taken on day of
discharge) when you see these providers in the office
If you develop significant abdominal pain, or severe nausea/vomiting to the point you cannot hold down food or drink then you should return to the ED for further evaluation
Instructions: Biliary Stent Placement
Referrals:
Kam Mercado DO [Family Provider] -
Ethan Romero MD [Active] - (call 1 week to review pathology results -- will need 3 month follow up)
Semaj Orozco MD [Active] - in less than 1 week (Call office to schedule appointment, states they can see you next week)
Additional Discharge Medication Instructions: Stop simvastatin until liver function tests are normal, and you see your PCP/family doctor
Prescriptions:
Continued
fluticasone propionate
50 mcg inhalation DAILY PRN (Reason: congestion)
lisinopril
20 mg PO DAILY
omeprazole
20 mg PO PRN (Reason: acid reflux)
Daily Multivitamin
Patient Comments:
'I take a multivitamin when I remember. It's a square gummy.'
Held
simvastatin 20 mg Tablet
20 mg PO HS
Hold Instructions: Until you see your family doctor and liver function test normalize
Discharge Orders:
Discharge Patient (As Directed); Ordered 02/07/24
Ordered By: Semaj Vazquez
Discharge Date and Time
Print Language: JAPANESE
[2024-02-09 12:21] LABS: IgG Subclass 4 85 mg/dL (1-123)
[2024-02-09 12:45] LABS: CA 19-9 207 U/mL (<=35)
== END 2024-02-07 14:22 | disposition home or self-care (01) | DRG 435 ==
LOC: 4 WEST ACU 07:46
PROVIDERS: Internal Medicine Gastroenterology; Nurse Practitioner Adult Health; ADMITTING PHYSICIAN Internal Medicine; ATTENDING PHYSICIAN Internal Medicine; CONSULT PHYSICIAN Internal Medicine Gastroenterology; EMERGENCY PHYSICIAN Emergency Medicine; FAMILY PHYSICIAN Family Medicine
PROC: 0FDG8ZX Extraction of Pancreas, Via Natural or Artificial Opening Endoscopic, Diagnostic (ICD-10-PCS; 2024-02-06)
PROC: 0F758DZ Dilation of Right Hepatic Duct with Intraluminal Device, Via Natural or Artificial Opening Endoscopic (ICD-10-PCS; 2024-02-06)
DX: C25.0 Malignant neoplasm of head of pancreas (principal); K83.1 Obstruction of bile duct; E78.00 Pure hypercholesterolemia, unspecified; K21.9 Gastro-esophageal reflux disease without esophagitis; I10 Essential (primary) hypertension; R59.0 Localized enlarged lymph nodes; K86.89 Other specified diseases of pancreas; F03.90 Unspecified dementia, unspecified severity, without behavioral disturbance, psychotic disturbance, mood disturbance, and anxiety; Z79.899 Other long term (current) drug therapy
CPT/HCPCS: 88172; 88173; 88305; 74183; 74330; 76000; 76700; 80053; 81003; 81015; 82248; 82378; 82787; 82977; 83690; 85025; 85027; 85610; 85730; 86301; 86803; 88177; 88342; 99285; A9575; C1769; C2617

== ENCOUNTER → 2024-02-20 07:36 | Outpatient (REF) | payer MEDICARE, BC, SELFPAY | LOC: HWRAD 07:36 | PROVIDERS: ATTENDING PHYSICIAN Internal Medicine Hematology & Oncology; FAMILY PHYSICIAN Physician Assistant Medical | DX: C25.0 Malignant neoplasm of head of pancreas (principal); D53.9 Nutritional anemia, unspecified; D68.9 Coagulation defect, unspecified; R97.8 Other abnormal tumor markers | CPT/HCPCS: 71260; 74177; Q9967 ==